=== PATIENT | female | born 1995 | race Caucasian/White ===

== ENCOUNTER → 2016-03-14 | Outpatient (CLI) | payer MEDICAID ==
--- NOTE | 2016-03-14 19:21 | DX ---
Left Shoulder, 3 Views History: Joint pain. M25.512. Findings: No acute fracture or dislocation identified. No evidence of AC joint separation. No evidenc e of destructive lesions involving the left clavicle, scapula, left upper ribs, or proximal left medhi esperanza. No significant degenerative changes of the glenohumeral or acromioclavicular joints. Impression: 1. No definite acute fracture. 2. No bony normality or degenerative changes of the left shoulder.
== END ==
LOC: CIMAGING 16:08
PROVIDERS: ATTEND Family Medicine
DX: M25.512 Pain in left shoulder (principal)
CPT/HCPCS: 73030-PO

== ENCOUNTER 2016-05-31 20:23 | Emergency (ER) | payer MEDICAID ==
[2016-05-31 20:34] VITALS: BP 113/82; PULSE 95; RESP 20; TEMP 98.2; O2SAT 96
--- NOTE | 2016-05-31 20:46 | EDPHY ---
H & P Stated Complaint: CP starting 3 hours ago after yoga, family CO Hx Time Seen by Provider: 05/31/16 20:39 HPI/ROS: CHIEF COMPLAINT: Chest pain HISTORY OF PRESENT ILLNESS: The patient is a 21-year-old healthy female who comes to the emergency department complaining chest pain. She states that she was smoking marijuana from a bong about 2 hours ago when it began. She does not feel short of breath. She has whispering because she states that it hurts her chest to talk. It also hurts to palpate and is reproducible with palpation. She denies any smoking of tobacco. She does not use control. She has not had any recent travel or procedures. No leg pain or swelling. She denies palpitations or lightheadedness. REVIEW OF SYSTEMS: Constitutional: denies: chills, fever, recent illness, recent injury EENTM: denies: blurred vision, double vision, nose congestion Respiratory: denies: cough, shortness of breath Cardiac: See HPI Gastrointestinal/Abdominal: denies: abdominal pain, diarrhea, nausea, vomiting, blood streaked stools Genitourinary: denies: dysuria, frequency, hematuria, pain Musculoskeletal: denies: joint pain, muscle pain Skin: denies: lesions, rash, jaundice, bruising Neurological: denies: headache, numbness, paresthesia, tingling, dizziness, weakness Hematologic/Lymphatic: denies: blood clots, easy bleeding, easy bruising Immunologic/allergic: denies: HIV/AIDS, transplant EXAM: GENERAL: Well-appearing, well-nourished and in no acute distress. HEAD: Atraumatic, normocephalic. EYES: Pupils equal round and reactive to light, extraocular movements intact, sclera anicteric, conjunctiva are normal. ENT: TMs normal, nares patent, oropharynx clear without exudates. Moist mucous membranes. NECK: Normal range of motion, supple without lymphadenopathy or JVD. LUNGS: Breath sounds clear to auscultation bilaterally and equal. No wheezes rales or rhonchi. HEART: Regular rate and rhythm without murmurs, rubs or gallops. ABDOMEN: Soft, nontender, normoactive bowel sounds. No guarding, no rebound. No masses appreciated. BACK: No CVA tenderness, no spinal tenderness, step-offs or deformities EXTREMITIES: Normal range of motion, no pitting or edema. No clubbing or cyanosis. NEUROLOGICAL: Cranial nerves II through XII grossly intact. Normal speech, normal gait. 5/5 strength, normal movement in all extremities, normal sensation PSYCH: Anxious SKIN: Warm, dry, normal turgor, no visible rashes or lesions. Source: Patient Exam Limitations: No limitations - Personal History LMP (Females 10-55): 22-28 Days Ago Current Tetanus/Diphtheria Vaccine: Yes Current Tetanus Diphtheria and Acellular Pertussis (TDAP): Yes Tetanus Vaccine Date: less than 10 years - Medical/Surgical History Hx Asthma: Yes Hx Chronic Respiratory Disease: No Hx Diabetes: No Hx Cardiac Disease: No Hx Renal Disease: No Hx Cirrhosis: No Hx Alcoholism: No Hx HIV/AIDS: No Hx Splenectomy or Spleen Trauma: No Other PMH: stomach ulcers, pancreatitis, tonsillectomy - Family History Significant Family History: Heart disease - Social History Smoking Status: Never smoked Alcohol Use: Sober Drug Use: None Constitutional: Initial Vital Signs Temperature (C) 36.8 C 05/31/16 20:32 Heart Rate 95 05/31/16 20:32 Respiratory Rate 20 05/31/16 20:32 Blood Pressure 113/82 H 05/31/16 20:32 O2 Sat (%) 96 05/31/16 20:32 O2 Delivery Mode Room Air Allergies/Adverse Reactions: No Known Allergies Allergy (Unverified 10/23/14 08:25) Home Medications: Medication Instructions Recorded VITAMIN D 05/31/16 Medical Decision Making - Diagnostics EKG Interpretation: An EKG obtained and was read and documented in trace view. Please see trace view for full reading and report. Sinus rhythm, no acute ischemic changes Imaging: X-ray: chest x-ray was obtained. I viewed the images myself on the PACS system. My interpretation of the images is: negative for acute disease . The radiologist interpretation is pending. ED Course/Re-evaluation: Patient has a PERC score of 0. I will obtain a EKG and chest x-ray to rule out pulmonary damage. Her pain is reproducible and seems primarily musculoskeletal. Associated with some anxiety. we discussed the patient's test results which are reassuring. She is relieved. I recommended anti-inflammatories. She will try this at home. We discussed indications for returning. Differential Diagnosis: Partial list of the Differential diagnosis considered include but were not limited to; musculoskeletal chest pain, pneumothorax, pleurisy and although unlikely based on the history and physical exam, I also considered PE, dissection, acute coronary disease. I discussed these differential diagnoses and the plan with the patient as well as the usual and expected course. The patient understands that the diagnosis is provisional and that in medicine we are not always correct and that further workup is often warranted. Usual and customary warnings were given. All of the patient's questions were answered. The patient was instructed to return to the emergency department should the symptoms at all worsen or return, otherwise to followup with the physician as we discussed. Departure - Departure Disposition: Home, Routine, Self-Care Clinical Impression: Chest wall pain Condition: Fair Instructions: Chest Wall Pain (ED) Referrals: Doug Aly MD [Medical Doctor] - As per Instructions
--- NOTE | 2016-05-31 20:51 | CPEKG ---
Heart Rate: 73 RR Interval: 822 P-R Interval: 152 QRSD Interval: 88 QT Interval: 376 QTC Interval: 415 P [place]: 16 QRS [place]: 56 T Wave [place]: 33 EKG Severity - NORMAL ECG - EKG Impression: SINUS RHYTHM Electronically Signed By: Jeffrey Álvarez 31-May-2016 20:53:01
== END 2016-05-31 21:30 | disposition home or self-care (01) ==
DX: R07.89 Other chest pain (principal); J45.909 Unspecified asthma, uncomplicated

== ENCOUNTER 2016-06-01 11:58 | Emergency (ER) | payer MEDICAID ==
[2016-06-01] MEDS ORDERED: IBUPROFEN 600 MG TAB PO ONE (12:33)
--- NOTE | 2016-06-01 12:55 | EDPHY ---
H & P Time Seen by Provider: 06/01/16 12:09 HPI/ROS: This is a 21-year-old female presenting to the emergency department complaining of continued right anterior chest wall pain since last night. Patient was seen last night for same problem no new symptoms, patient states pain never really resolved she said she was concerned because she is leaving out of town tomorrow. States she did take ibuprofen last night but has not taken any this morning. Denies any chest pain or shortness of breath, pain only increases with deep inspiration. REVIEW OF SYSTEMS: Constitutional: No fever no chills, no changes in PO intake ENT: No sore throat Respiratory: No cough, right anterior chest wall pain with deep inspiration Cardiac: right anterior chest wall pain with deep inspiration Gastrointestinal: No abdominal pain Musculoskeletal: No back pain Skin: No rash Neurological: No headache or dizziness Smoking Status: Never smoked Physical Exam: CONSTITUTIONAL: patient appeared well nourished, non-ill appearing and normally developed. No acute distress. Vital signs as documented. HEENT: Normocephalic atraumatic NECK: Supple, FROM without pain RESP: Non-labored resp effort, airway patent, CTAB CARDIAC: RRR w/o murmur, enzo. Normal S1/S2. Right anterior chest wall tenderness, pain is reproducible with palpation no obvious injuries or deformities GI: Abd soft NTTP, no mass NEURO: AAOx3 EXTREMITIES: FROM without pain or difficulty. Positive cms intact SKIN: Warm and dry, no rash no mottling no pet[place]ia PSYCH: Normal affect, calm, no distress Constitutional: Initial Vital Signs Temperature (C) 36.6 C 06/01/16 12:00 Heart Rate 86 06/01/16 12:00 Respiratory Rate 18 06/01/16 12:00 Blood Pressure 108/73 06/01/16 12:00 O2 Sat (%) 99 06/01/16 12:00 O2 Delivery Mode Room Air Allergies/Adverse Reactions: No Known Allergies Allergy (Verified 06/01/16 11:59) Home Medications: Medication Instructions Recorded VITAMIN D 05/31/16 Medical Decision Making ED Course/Re-evaluation: Discussed plan of care the patient: Reviewed chest x-ray and EKG from yesterday no acute findings, 600 mg ibuprofen given the patient. Reassured patient of negative findings. Discharge home--> stable, discussed discharge instructions with the patient Differential Diagnosis: Differential diagnosis considered but not limited to costochondritis, pneumothorax, tension pneumo - Data Points Medications Given: Discontinued Medications Ibuprofen (Motrin) 600 mg PO ONCE ONE Stop: 06/01/16 12:34 Last Admin: 06/01/16 12:40 Dose: 600 mg Departure - Departure Disposition: Home, Routine, Self-Care Clinical Impression: Pain of anterior chest wall with respiration, Musculoskeletal pain Condition: Good Additional Instructions: 1. He can take ibuprofen 600 mg every 6-8 hours. He can also use over-the- counter capsaicin or lidocaine 4% patches you can buy these [id number] 8 hours on 8 hours off as needed 2. Heating pad may be beneficial as needed for pain. To not use heating pad on top of patches as this can cause a burn 3. Decrease strenuous activity. 4. If you have any concerns or questions or any worsening symptoms such as: Increased chest pain, shortness of breath unable to breath return to the emergency department Referrals: NONE *PRIMARY CARE P,. [Primary Care Provider] - As per Instructions [facility],. [Clinic] - As per Instructions
[2016-06-01 13:31] VITALS: BP 110/76; PULSE 72; RESP 16; TEMP 98.1; O2SAT 98
== END 2016-06-01 13:28 | disposition home or self-care (01) ==
DX: R07.1 Chest pain on breathing (principal)